=== PATIENT | male | born 1980 | race African-American/Black ===

== ENCOUNTER 2017-06-16 17:48 | Emergency (ER) | payer OTHER ==
[~2017-06-16] VITALS: Ht 175.3 cm; Wt 100.0 kg
[2017-06-16] MEDS ORDERED: [UNRECOGNIZED DRUG - REMARK] (18:16)
[2017-06-16 19:21] VITALS: BP 140/80
[2017-06-16] MEDS ORDERED: PERCOCET 10/31 COMBO PO (19:22)
== END 2017-06-16 19:25 | disposition home or self-care (01) | DRG 605 ==
LOC: ED 17:48
DX: S30.0XXA Contusion of lower back and pelvis, initial encounter (principal); F43.10 Post-traumatic stress disorder, unspecified; W07.XXXA Fall from chair, initial encounter; Y92.89 Other specified places as the place of occurrence of the external cause; Y99.0 Civilian activity done for income or pay

== ENCOUNTER 2017-11-15 09:00 | Outpatient (RCR) | payer OTHER ==
[~2017-11-15 09:00] MED LIST: PERCOCET 10/31 COMBO PO; [UNRECOGNIZED DRUG - REMARK]
== END 2017-11-15 10:00 | disposition home or self-care (01) | DRG 552 ==
LOC: PT 09:00
PROVIDERS: ATTEND Neurological Surgery
DX: M54.5 Low back pain (principal)

== ENCOUNTER 2018-08-24 11:47 | Emergency (ER) | payer OTHER ==
[~2018-08-24] VITALS: Ht 175.3 cm; Wt 109.1 kg
[2018-08-24] MEDS ORDERED: FLEXERIL PO (13:21)
[2018-08-24] MEDS ORDERED: MEDDOSEPAK PO (13:21)
[2018-08-24] MEDS ORDERED: TRAMADOL HYDROC50 MG PO (13:21)
[2018-08-24 13:37] VITALS: BP 121/71
== END 2018-08-24 13:37 | disposition home or self-care (01) | DRG 563 ==
LOC: ED 11:47
DX: S39.012A Strain of muscle, fascia and tendon of lower back, initial encounter (principal); X50.3XXA Overexertion from repetitive movements, initial encounter; Y93.02 Activity, running

== ENCOUNTER 2018-08-31 20:07 | Emergency (ER) | payer OTHER ==
[~2018-08-31] VITALS: Ht 175.3 cm; Wt 105.0 kg
[~2018-08-31 20:07] MED LIST changes: +FLEXERIL PO; +MEDDOSEPAK PO; +TRAMADOL HYDROC50 MG PO
[2018-08-31 20:36] LABS: HEMATOCRIT 46.1 % (39.0-50.0); HEMOGLOBIN 14.7 g/dl (14.0-18.0); IMMATURE GRANULOCYTES 2.4 % (0.0-5.0); MEAN CELL VOLUME 85.7 fL CALC (80.0-100.0); MEAN CORPUSCULAR HGB 27.3 pG CALC (26.0-32.0); MEAN CORPUSCULAR HGB CONC 31.9 g/L CALC (32.0-36.0); NEUT# 3.69 thou/uL (1.82-7.42); RED BLOOD COUNT 5.38 mill/uL (4.70-6.10); RED CELL DISTRI WIDTH 13.5 % (11.5-15.5)
[2018-08-31 20:46] LABS: ALBUMIN 4.3 g/dL (3.2-5.0); ALKALINE PHOSPHATASE 68 u/l (38-126); AMYLASE 89 u/l (30-110); ANION GAP 14 (6-22 (CALC)); BILIRUBIN, TOTAL 0.6 mg/dL (0.0-1.4); BUN 17 mg/dL (9-20); BUN/CREATININE RATIO 14 (12-20 (CALC)); CARBON DIOXIDE 30 mmol/l (22-30); CHLORIDE 102 mmol/l (95-108); CREATININE 1.2 mg/dL (0.7-1.3); GFR > 60 ML/MIN (>=60 (CALC)); GFR FOR AFR.AMER. > 60 ML/MIN (>=60 (CALC)); LIPASE 59 u/l (23-300); POTASSIUM 4.1 mmol/l (3.5-5.1); SGOT/AST 22 u/l (17-59); SODIUM 142 mmol/l (137-146); TOTAL PROTEIN 7.6 g/dL (6.3-8.2)
[2018-08-31 20:57] LABS: ACT PARTIAL THROMBO TIME 23.3 SECONDS (20.0-32.5); D-DIMER 0.17 mg/L (0.19-0.60); INTERNATIONAL NORMALIZED RATIO 1.1 RATIO (0.7-1.3); PROTHROMBIN TIME 11.2 SECONDS (9.0-12.5)
[2018-08-31 20:58] LABS: MYOGLOBIN 17 ng/mL (0 - 121)
[2018-08-31 21:45] VITALS: BP 129/78
[2018-08-31] MEDS ORDERED: PROTONIX40 MG PO (21:50)
== END 2018-08-31 22:06 | disposition home or self-care (01) | DRG 392 ==
LOC: ED 20:07
PROVIDERS: Family Medicine
DX: K29.70 Gastritis, unspecified, without bleeding (principal); T38.0X5A Adverse effect of glucocorticoids and synthetic analogues, initial encounter

== ENCOUNTER 2019-02-04 11:06 | Emergency (ER) | payer OTHER ==
[~2019-02-04] VITALS: Ht 175.3 cm; Wt 109.1 kg
[~2019-02-04 11:06] MED LIST changes: +PROTONIX40 MG PO
[2019-02-04] MEDS ORDERED: AMOXICILLIN500 M2 PO (12:28)
[2019-02-04 12:44] VITALS: BP 119/71
== END 2019-02-04 12:44 | disposition home or self-care (01) | DRG 153 ==
LOC: ED 11:06
DX: J02.0 Streptococcal pharyngitis (principal)

== ENCOUNTER 2020-09-23 18:41 | Emergency (ER) | payer OTHER ==
[~2020-09-23 18:41] MED LIST changes: +AMOXICILLIN500 M2 PO
[2020-09-23] MEDS ORDERED: VOLTAREN - GENE75 MG PO (20:52)
[2020-09-23 21:05] VITALS: BP 147/85
== END 2020-09-23 21:06 | disposition home or self-care (01) | DRG 563 ==
LOC: ED 18:41
DX: S83.92XA Sprain of unspecified site of left knee, initial encounter (principal); X50.0XXA Overexertion from strenuous movement or load, initial encounter

== ENCOUNTER 2021-02-02 22:48 | Emergency (ER) | payer OTHER ==
[~2021-02-02] VITALS: Ht 175.3 cm; Wt 108.0 kg
[~2021-02-02 22:48] MED LIST changes: +VOLTAREN - GENE75 MG PO
[2021-02-03] MEDS ORDERED: CLARITIN10 M1 PO (00:15)
[2021-02-03] MEDS ORDERED: TAM75CAP PO (00:52)
[2021-02-03 01:07] VITALS: BP 140/85
== END 2021-02-03 01:14 | disposition home or self-care (01) | DRG 866 ==
LOC: ED 22:48
DX: B34.9 Viral infection, unspecified (principal); I10 Essential (primary) hypertension; Z20.828 Contact with and (suspected) exposure to other viral communicable diseases; Z20.822 Contact with and (suspected) exposure to COVID-19

== ENCOUNTER 2021-04-01 17:13 | Emergency (ER) | payer OTHER ==
[~2021-04-01] VITALS: Ht 175.3 cm; Wt 110.0 kg
[~2021-04-01 17:13] MED LIST changes: +CLARITIN10 M1 PO; +TAM75CAP PO
[2021-04-01 17:40] VITALS: BP 124/88
== END 2021-04-01 19:30 | disposition home or self-care (01) | DRG 179 ==
LOC: ED 17:13
DX: U07.1 COVID-19 (principal); R53.83 Other fatigue; R09.89 Other specified symptoms and signs involving the circulatory and respiratory systems; J02.9 Acute pharyngitis, unspecified; I10 Essential (primary) hypertension